=== PATIENT | male | born 1995 | race African-American/Black ===

== ENCOUNTER 2017-03-06 17:32 | Emergency (ER) | payer OTHER ==
[~2017-03-06] VITALS: Ht 177.8 cm; Wt 77.1 kg
[2017-03-06] MEDS ORDERED: LIDOCAINE 1% SDV INJ 30 ML VIAL SC ONE (18:30)
[2017-03-06] MEDS ORDERED: LIDOCAINE 1% MDV 20ML VIAL As Ordered ONE (18:40)
[2017-03-06 19:15] VITALS: BP 152/83
== END 2017-03-06 19:17 | disposition home or self-care (01) ==
LOC: M ED 18:25
DX: S61.214A Laceration without foreign body of right ring finger without damage to nail, initial encounter (principal); W26.8XXA Contact with other sharp object(s), not elsewhere classified, initial encounter; Y92.018 Other place in single-family (private) house as the place of occurrence of the external cause; Y93.89 Activity, other specified; Y99.0 Civilian activity done for income or pay

== ENCOUNTER 2018-01-03 15:28 | Emergency (ER) | payer OTHER ==
[2018-01-03] MEDS: KETOROLAC 30 MG/ML VIAL (J1885) IV (15:45)
[2018-01-03] MEDS ORDERED: KETOROLAC 60 MG/2 ML VIAL (J1885) IM (15:45)
[2018-01-03] MEDS: MORPHINE 4 MG/ML 1ML VIAL (J2270) IV (16:13)
== END 2018-01-03 17:20 | disposition home or self-care (01) ==
LOC: M ED 15:28
DX: S83.005A Unspecified dislocation of left patella, initial encounter (principal); X58.XXXA Exposure to other specified factors, initial encounter; Y92.9 Unspecified place or not applicable; Y93.9 Activity, unspecified; Y99.1 Military activity
CPT/HCPCS: J2270